=== PATIENT | male | born 1965 | race Caucasian/White ===

== ENCOUNTER 2022-03-08 06:41 | Day surgery (SDC) | payer OTHER ==
[2022-03-08] MEDS ORDERED: Propofol 200 MG/20 ML SDV IV ONE (06:42)
[2022-03-08] MEDS ORDERED: Sodium Chloride 0.9% 10 ML Syringe FLUSH PRN (06:45)
[2022-03-08] MEDS: Lactated Ringers 1,000 ML IV SCH ×2 (07:28→11:24)
[2022-03-08] MEDS ORDERED: Simethicone Drops 40 MG/0.6 ML 30 ML Bottle ONE (08:48)
== END 2022-03-08 09:37 | disposition home or self-care (01) ==
LOC: FB.SDS 06:41
PROVIDERS: ATTEND Surgery
DX: Z12.11 Encounter for screening for malignant neoplasm of colon (principal); K57.30 Diverticulosis of large intestine without perforation or abscess without bleeding; K42.0 Umbilical hernia with obstruction, without gangrene; Z79.899 Other long term (current) drug therapy; K40.90 Unilateral inguinal hernia, without obstruction or gangrene, not specified as recurrent
CPT/HCPCS: 00812-QZ; A9270-GY; J2704; J7120